=== PATIENT | female | born 1995 | race African-American/Black ===

== ENCOUNTER 2020-08-30 17:10 | Outpatient (REF) | payer OTHER, SELFPAY | END 2020-08-30 17:11 | disposition home or self-care (01) | LOC: HO.LAB 17:10 | PROVIDERS: Visit Provider Internal Medicine | DX: Z20.828 Contact with and (suspected) exposure to other viral communicable diseases (principal) | CPT/HCPCS: C9803; U0003 ==

== ENCOUNTER 2021-09-28 10:19 | Outpatient (REF) | payer SELFPAY ==
[2021-09-28 11:35] LABS: Binax Internal Control QC Valid; Binax Now Covid-19 Ag Negative (Negative)
== END 2021-09-28 10:20 | disposition home or self-care (01) ==
LOC: HO.LAB 10:19
PROVIDERS: Visit Provider Internal Medicine
DX: Z20.822 Contact with and (suspected) exposure to COVID-19 (principal)
CPT/HCPCS: 36415; C9803

== ENCOUNTER 2023-05-20 21:51 | Emergency (ER) | payer SELFPAY ==
[2023-05-20 22:06] VITALS: BP 138/86; PULSE 106; RESP 18; TEMP 37.2; O2SAT 98; BMI 23.5
== END 2023-05-21 01:10 | disposition left against medical advice (07) ==
PROVIDERS: Emergency Provider Emergency Medicine
DX: M54.2 Cervicalgia (principal)
CPT/HCPCS: 99281